=== PATIENT | female | born 1965 | race Caucasian/White ===

== ENCOUNTER 2018-03-03 15:31 | Outpatient (CLI) | payer BC ==
--- NOTE | 2018-03-31 16:08 | MMO ---
BILATERAL SCREENING MAMMOGRAMS: Date: 03/03/18 Comparison made to prior exams from 2017 and 2014. This patient's mammogram was interpreted with the assistance of computer-aided detection. FINDINGS: Heterogeneously dense glandular pattern is seen. There are scattered benign calcifications. No mass, distortion, or significant interval change. Recommend one year follow-up. IMPRESSION: BIRADS 2: Benign Finding(s) POS: ROB
== END 2018-03-03 15:32 | disposition home or self-care (01) ==
LOC: SCSMAMMO 15:31
PROVIDERS: ATTEND Family Medicine
DX: Z12.31 Encounter for screening mammogram for malignant neoplasm of breast (principal)
CPT/HCPCS: 77067

== ENCOUNTER 2025-01-26 15:22 | Outpatient (CLI) | payer BC | END 2025-01-26 15:23 | disposition home or self-care (01) | LOC: BICMAMMO 15:22 | PROVIDERS: ATTEND Family Medicine | DX: Z12.31 Encounter for screening mammogram for malignant neoplasm of breast (principal) | CPT/HCPCS: 77063; 77067 ==